=== PATIENT | female | born 1940 | race Caucasian/White ===

== ENCOUNTER → 2016-12-11 17:07 | Outpatient (CLI) | payer MEDICARE ==
[2014-09-23 09:12] VITALS: BMI 26.3
[~2016-12-11 17:07] MED LIST: ADVIL200 MG PO; BAYER CHEWABLE81 MG PO; CIPRO500 MG PO; CRANBERRY475 MG PO; FLINTSTONE1 TAB.CHEW PO; METAMUCIL1042 GM PO; PRILOSEC20 MG PO
== END | disposition home or self-care (01) ==
LOC: D.MAMMO 13:15
DX: Z12.31 Encounter for screening mammogram for malignant neoplasm of breast (principal)

== ENCOUNTER → 2018-03-11 17:06 | Outpatient (CLI) | payer MEDICARE ==
[2014-09-23 09:12] VITALS: BMI 26.3
== END | disposition home or self-care (01) ==
LOC: D.MAMMO 10:15
DX: Z12.31 Encounter for screening mammogram for malignant neoplasm of breast (principal)

== ENCOUNTER → 2019-02-14 08:08 | Outpatient (CLI) | payer MEDICARE ==
[2014-09-23 09:12] VITALS: BMI 26.3
== END | disposition home or self-care (01) ==
LOC: D.CT 08:08
PROVIDERS: ATTEND Internal Medicine Gastroenterology
DX: R11.0 Nausea (principal); K44.9 Diaphragmatic hernia without obstruction or gangrene; R63.4 Abnormal weight loss

== ENCOUNTER → 2019-02-22 09:19 | Outpatient (CLI) | payer MEDICARE | END | disposition home or self-care (01) | LOC: D.RAD 09:19 | DX: R11.0 Nausea (principal); K44.9 Diaphragmatic hernia without obstruction or gangrene; R63.4 Abnormal weight loss ==

== ENCOUNTER → 2019-03-23 09:02 | Outpatient (CLI) | payer MEDICARE ==
[2014-09-23 09:12] VITALS: BMI 26.3
== END | disposition home or self-care (01) ==
LOC: D.CT 09:02
PROVIDERS: ATTEND Clinical Nurse Specialist Adult Health
DX: R91.1 Solitary pulmonary nodule (principal)

== ENCOUNTER 2019-04-26 09:51 | Outpatient (CLI) | payer MEDICARE ==
[2014-09-23 09:12] VITALS: BMI 26.3
== END 2019-04-26 10:49 | disposition home or self-care (01) ==
LOC: D.OPS 09:51
PROVIDERS: ATTEND Surgery
DX: K44.9 Diaphragmatic hernia without obstruction or gangrene (principal); K21.9 Gastro-esophageal reflux disease without esophagitis

== ENCOUNTER → 2019-06-20 08:33 | Outpatient (CLI) | payer MEDICARE ==
[2014-09-23 09:12] VITALS: BMI 26.3
== END | disposition home or self-care (01) ==
LOC: D.RT 08:33
PROVIDERS: ATTEND Internal Medicine Pulmonary Disease
DX: R93.89 Abnormal findings on diagnostic imaging of other specified body structures (principal)

== ENCOUNTER 2019-08-19 09:00 | Outpatient (CLI) | payer MEDICARE ==
[2014-09-23 09:12] VITALS: BMI 26.3
== END 2019-08-19 10:00 | disposition home or self-care (01) ==
LOC: D.MAMMO 09:00
PROVIDERS: ATTEND Family Medicine
DX: Z12.31 Encounter for screening mammogram for malignant neoplasm of breast (principal)

== ENCOUNTER → 2019-09-20 08:30 | Outpatient (CLI) | payer MEDICARE ==
[2014-09-23 09:12] VITALS: BMI 26.3
== END | disposition home or self-care (01) ==
LOC: D.MAMMO 08:30
PROVIDERS: ATTEND Family Medicine
DX: R92.8 Other abnormal and inconclusive findings on diagnostic imaging of breast (principal)